=== PATIENT | female | born 1970 | race Caucasian/White ===

== ENCOUNTER 2021-06-09 06:06 | Day surgery (SDC) | payer MEDICAID ==
[2021-06-01 12:25] VITALS: BMI 37.8
[~2021-06-09 06:06] MED LIST: DEXAMETHASONE SOD PHOSPHATE 4 MG/ML 1 ML VIAL IV ONE; LACTATED RINGERS 1,000 ML IV SCH; MIDAZOLAM 2 MG/2 ML VIAL IV PRN; ONDANSETRON 4 MG/2 ML VIAL IVP ONE; SCOPOLAMINE 1.5MG/72HR PATCH TRANSDERM ONE
[2021-06-09] MEDS ORDERED: LIDOCAINE 1% (10MG/ML) FOR IV START INTRADERMA ONE (07:10)
[2021-06-09] MEDS ORDERED: fentaNYL (PF) 50 MCG/ML 2 ML AMP IV ONE (07:28)
[2021-06-09] MEDS ORDERED: MIDAZOLAM 2 MG/2 ML VIAL ONE (08:46)
[2021-06-09] MEDS ORDERED: PROPOFOL 10 MG/ML 20 ML VIAL IV ONE (08:46)
[2021-06-09] MEDS ORDERED: SUCCINYLCHOLINE CHLORIDE 100 MG/5 ML SYR IV ONE (08:46)
[2021-06-09] MEDS ORDERED: fentaNYL (PF) 50 MCG/ML 2 ML AMP ONE (08:46)
[2021-06-09] MEDS ORDERED: ePHEDrine SULFATE/0.9% NACL/PF 50 MG/5 ML SYRINGE IV ONE (08:46)
[2021-06-09] MEDS ORDERED: LIDOCAINE 1% INJ 10MG/ML (20 ML MDV) ONE (08:46)
--- NOTE | 2021-06-09 08:46 | P.ANPRN ---
Procedure Note - Anesthesia - Nerve Block Performed Right Popliteal Single Time Out Performed: Yes (726) Date of Procedure: 06/09/21 Procedure Start Time: 07:27 Procedure Stop Time: 07:32 Location of Patient: PreOp Indication: Acute Post-Operative Pain, Requested by Surgeon Specifically requested for management of pain by DrVignesh: Dex Lopez Sedation Type: Sedate with meaningful contact maintained Preparation: Sterile Prep Position: Left Lateral Catheter: None Needle Types: Pajunk Needle Gauge: 21 Ultrasound used to visualize needle placement: Yes Ultrasound used to observe medication spread: Yes Injectate: 0.5% Ropivacaine (see comment for volume) (20cc) Blood Aspirated: No Pain Paresthesia on Injection Noted: No Resistance on Injection: Normal Image Stored and Saved: Yes Events: Uneventful and Well Tolerated Right Adductor Canal Single Time Out Performed: Yes (726) Date of Procedure: 06/09/21 Procedure Start Time: 07:33 Procedure Stop Time: 07:35 Location of Patient: PreOp Indication: Acute Post-Operative Pain, Requested by Surgeon Specifically requested for management of pain by DrVignesh: Dex Lopez Sedation Type: Sedate with meaningful contact maintained Preparation: Sterile Prep Position: Supine Catheter: None Needle Types: Pajunk Needle Gauge: 21 Ultrasound used to visualize needle placement: Yes Ultrasound used to observe medication spread: Yes Injectate: 0.5% Ropivacaine (see comment for volume) (20cc) Blood Aspirated: No Pain Paresthesia on Injection Noted: No Resistance on Injection: Normal Image Stored and Saved: Yes Events: Uneventful and Well Tolerated
[2021-06-09] MEDS ORDERED: LACTATED RINGERS 1,000 ML IV ONE (09:58)
[2021-06-09] MEDS: HYDROmorphone 0.5 MG/0.5 ML SYRINGE IVP PRN ×2 (10:45→11:19)
[2021-06-09 10:48] VITALS: TEMP 98.1
[2021-06-09] MEDS ORDERED: KETOROLAC 15 MG/ML 1 ML VIAL ONE (11:01)
[2021-06-09] MEDS ORDERED: ONDANSETRON 4 MG/2 ML VIAL ONE (11:08)
[2021-06-09] MEDS ORDERED: ONDANSETRON 4 MG/2 ML VIAL IVP ONE (11:10)
[2021-06-09] MEDS ORDERED: KETOROLAC 15 MG/ML 1 ML VIAL IVP ONE (11:12)
[2021-06-09 11:57] VITALS: RESP 18
[2021-06-09 12:12] VITALS: BP 144/82; PULSE 58
--- NOTE | 2021-06-12 16:34 | OP ---
OPERATIVE REPORT DATE OF SURGERY: June 09, 2021. PREOP DIAGNOSES: 1. Painful retained device, right foot. 2. Deformity, right foot. POSTOP DIAGNOSES: 1. Painful retained device, right foot. 2. Deformity, right foot. PROCEDURE PERFORMED: 1. Calcaneocuboid joint arthrodesis, right foot. 2. Removal of hardware in the right foot. SURGEON: Dex Lopez DPM. ANESTHESIA: General with preoperative nerve block. Hemostasis right calf tourniquet to 250 mmHg. ESTIMATED BLOOD LOSS: 3 mL. MATERIALS: [employer] titanium Meade graft and then 10 mL of DBM and one 6 hole plate with associated screws. INJECTABLES: None. SPECIMENS: None. COMPLICATIONS: None. OPERATIVE COURSE: Prior to the patient being brought to the operating room, Anesthesia administered a nerve block on the right lower extremity. Utilizing ultrasound and guidance and having the patient under mild sedation, the patient was then brought into the operating room, placed on table in supine position. A time-out was taken to confirm correct patient identifiers, correct site of surgery, correct procedure. Everyone in the room was in agreement, the patient was induced and placed under general anesthesia. A well-padded tourniquet was placed on the right calf with a wedge underneath the right hip to internally rotate the right leg and the right leg was prepped and draped in usual manner. The leg was exsanguinated and the tourniquet inflated to 250 mmHg. Attention directed over the lateral aspect of the right hind foot where incision was made along the lateral aspect of the calcaneus and curved dorsally and medially over the cuboid joint. It was deepened down to the subcutaneous tissue careful to identify and avoid retracting neurovascular structures and cauterize any bleeding vessels. Blunt dissection was continued down to the calcaneus and then the deep tissue incised to expose the calcaneocuboid joint. The base of the cuboid anterior process calcaneus and the previously mentioned implant. The foot was placed under stress. It was noted that the implant was loosened, so it was easily from the normal bone and removed. Sharp gouge was then used to remove any of the fibrous tissue between the bone and metal interface and then there was a debulking of the anterior process of the calcaneus with that sat in a more corrected position and then at that point, the cartilage from the cuboid anterior process of the calcaneus were removed with sharp gouges down to medullary bone. All the surfaces were then fenestrated with a 2-0 drill bit. The wound was thoroughly irrigated and then a 12 mm titanium Meade bone graft wedge was packed with a bone substitute into the defect to the either side of the implant and that was placed in the area of the previous implant. This is much firmer fit maintained the correction and also closed down the calcaneocuboid joint. Once that was in place, the calcaneocuboid joint arthrodesis site was packed with the same graft material and then a 6 hole plate was then bend and positioned over the lateral aspect of the calcaneus and cuboid to allow for compression of the sites and maintenance of the graft position. The distal screws were placed 1st and then compression screw placed proximally last. The construct was stable with no apparent movement. The rest of bone graft material was packed around the synthetic graft and as well as the calcaneocuboid joint arthrodesis site. Then the wound was thoroughly irrigated with antibiotic saline. The deep closure was done with 2-0 Vicryl, subcutaneous closure done with 4-0 Monocryl. Skin closure with tera. A jump-start dressing was applied over the incision and covered with a dry sterile dressing. Tourniquet was released. Capillary refill returned to all digits of the right foot. The patient was placed in a below-knee fracture boot with a neutral position. Anesthesia was reversed, the LMA removed. The patient taken to recovery with vital signs stable. JOHN / SRI: [id number] /
== END 2021-06-09 12:47 | disposition home or self-care (01) ==
LOC: OR 06:06
PROVIDERS: ATTEND Podiatrist
DX: M79.671 Pain in right foot (principal); M21.961 Unspecified acquired deformity of right lower leg; I10 Essential (primary) hypertension; F17.200 Nicotine dependence, unspecified, uncomplicated; G43.909 Migraine, unspecified, not intractable, without status migrainosus; Z79.899 Other long term (current) drug therapy
CPT/HCPCS: 28740; J2250; J1100; J0690; J2405; J2001; J3010; J1885; J0330; J2704; J1170